=== PATIENT | female | born 1955 | race Caucasian/White ===

== ENCOUNTER 2017-06-13 08:05 | Observation (INO) | payer OTHER ==
[~2017-06-13] VITALS: Ht 154.9 cm; Wt 66.7 kg
[~2017-06-13 08:05] MED LIST: ACEBUTCAFT PO; ARIP15; ASPI325EC PO; ATEN25 PO; Arthritis Pain650 M1 PO; BUPR150T2 PO; BUSP15; CLON.5; CLON1; CLON2 PO; CYCL10 PO; Ceftriaxone2 G1 IV; DEPRESSION MED; DIAZ10 PO; DIPH50 PO; DIVA125EC PO; DOCU100 PO; DULO30 PO; DULO60 PO; EFFEXOR; ENOX40I SC; FIORCET; FISH1000; FLUO90; HYDACE10B PO; HYDACE5 PO; IBUP800 PO; LEXA; LORA2 PO; METOPROLOL PO; Multivitamin1 EAC1 PO; NAPR250 PO; NAPR500 PO; OXYACE5T PO; OXYC5 PO; PHENA100 PO; PROACE100 PO; PROC10 PO; PROM25 PO; Percocet 5-3251 EACH PO; RXTRAM50 PO; SULTRIDS PO; SULTRISS PO; SUMA25 PO; TRAM50 PO; Ultram50 MG PO; Verotin-Gr Cap1 EACH PO; ZYPREXA; [UNRECOGNIZED DRUG - OTHER]; [UNRECOGNIZED DRUG - REMARK]; [UNRECOGNIZED DRUG - REMARK]
[2017-06-13] MEDS ORDERED: METO50ER PO (08:31)
[2017-06-13] MEDS ORDERED: CYCL10 PO (08:32)
[2017-06-13 09:00] LABS: BASOPHILS ABSOLUTE AUTO 0.04 K/mm3 (0.00-0.23); BASOPHILS PERCENT AUTO 1 % (0-2); EOSINOPHILS ABSOLUTE AUTO 0.07 K/mm3 (0.00-0.68); EOSINOPHILS PERCENT AUTO 1 % (0-6); Hematocrit 42.2 % (33.0-51.0); Hemoglobin 14.1 g/dL (11.5-16.0); IMMATURE GRAN ABSOLUTE AUTO 0.01 K/mm3 (0.00-0.10); IMMATURE GRAN PERCENT AUTO 0 % (0-1); LYMPHOCYTES ABSOLUTE AUTO 2.14 K/mm3 (0.84-5.20); LYMPHOCYTES PERCENT AUTO 35 % (21-46); MONOCYTES ABSOLUTE AUTO 0.47 K/mm3 (0.16-1.47); MONOCYTES PERCENT AUTO 8 % (4-13); Mean Corpuscular HGB Conc 33.4 g/dL (31.5-36.5); Mean Corpuscular Volume 87 fL (80-100); Mean Platelet Volume 11.1 fL (9.1-12.4); NEUTROPHILS ABSOLUTE AUTO 3.42 K/mm3 (1.96-9.15); NEUTROPHILS PERCENT AUTO 56 % (41-73); Platelet Count 260 K/mm3 (150-400); RDW Coefficient Variation 12.2 % (11.7-14.2); RDW Standard Deviation 38.8 fL (35.1-46.3); Red Blood Cell Count 4.86 M/mm3 (3.80-5.20); White Blood Cell Count 6.15 K/mm3 (4.00-11.30)
[2017-06-13 09:23] LABS: Alanine Aminotransfer (ALT/SGP 21 U/L (12-78); Albumin, Blood 4.1 g/dL (3.4-5.0); Albumin/Globulin Ratio 1.2 (0.8-1.8); Alk Phos 58 U/L (50-136); Anion Gap 7 mmol/L (6-16); Aspartate Aminotrans (AST/SGOT 18 U/L (12-37); Bilirubin, Total 0.4 mg/dL (0.1-1.0); Blood Urea Nitrogen 9 mg/dL (8-24); Bun/Creatinine Ratio 15.9 (12.0-20.0); CO2, Blood 28 mmol/L (21-32); Calcium, Blood 9.3 mg/dL (8.5-10.1); Chloride, Blood 106 mmol/L (98-108); Creatinine, Blood 0.57 mg/dL (0.40-1.00); Ethanol (Alcohol), Blood, Med <3 mg/dL; Globulin, Blood 3.5 g/dL (2.2-4.0); Glomerular Filtration Rate >60 (60-); Glucose, Blood 118 mg/dL (70-99); Potassium, Blood 3.8 mmol/L (3.5-5.5); Salicylate 3.9 mg/dL (2.8-20.0); Sodium, Blood 141 mmol/L (136-145); Total Protein, Blood 7.6 g/dL (6.4-8.2)
[2017-06-13 09:32] LABS: Acetaminophen, Random <2.0 ug/mL (10.0-30.0)
[2017-06-13 09:43] LABS: Bilirubin, Urine Neg (Neg); Blood, Urine Neg (Neg); Glucose Qualitative, Urine Neg (Neg); Ketones, Urine Neg (Neg); Leukocyte Esterase, Urine Neg (Neg); Nitrite, Urine Neg (Neg); Protein, Urine Neg (Neg); Urobilinogen, Urine NORM (Normal)
[2017-06-13 09:57] LABS: Appearance, Urine Clear (Clear); Color, Urine Pale Yellow (P-Yellow)
[2017-06-13 10:06] LABS: U Amphetamine Screen Not Detected; U Barbituate Screen Not Detected; U Benzodiazapine Screen DETECTED; U Buprenorphine Screen Not Detected; U Cannabinoids Screen DETECTED; U Cocaine Screen Not Detected; U Methadone Screen Not Detected; U Methamphetamine Screen Not Detected; U Opiates Screen Not Detected; U Oxycodone Screen Not Detected; U Phencyclidine Screen Not Detected; U Propoxyphene Screen Not Detected
== END 2017-06-13 15:12 | disposition home or self-care (01) ==
LOC: ER 08:05 → EOR 08:06
PROVIDERS: Emergency Medicine
DX: R45.851 Suicidal ideations (principal); F32.9 Major depressive disorder, single episode, unspecified; R44.0 Auditory hallucinations; G89.29 Other chronic pain; R10.9 Unspecified abdominal pain; M79.7 Fibromyalgia; G35 Multiple sclerosis; Z86.73 Personal history of transient ischemic attack (TIA), and cerebral infarction without residual deficits; Z98.1 Arthrodesis status; Z88.5 Allergy status to narcotic agent; Z90.710 Acquired absence of both cervix and uterus; Z87.891 Personal history of nicotine dependence; Z98.890 Other specified postprocedural states; Z79.899 Other long term (current) drug therapy
CPT/HCPCS: 36415; 80053; 81003; 84443; 85025; 99285; G0378; G0480

== ENCOUNTER 2017-10-09 11:45 | Observation (INO) | payer OTHER ==
[~2017-10-09] VITALS: Ht 157.5 cm; Wt 53.1 kg
[~2017-10-09 11:45] MED LIST changes: +METO50ER PO
[2017-10-09 13:18] LABS: Source, Urine Catheter
[2017-10-09 13:22] LABS: BASOPHILS ABSOLUTE AUTO 0.03 K/mm3 (0.00-0.23); BASOPHILS PERCENT AUTO 0 % (0-2); EOSINOPHILS ABSOLUTE AUTO 0.02 K/mm3 (0.00-0.68); EOSINOPHILS PERCENT AUTO 0 % (0-6); Hematocrit 38.4 % (33.0-51.0); IMMATURE GRAN ABSOLUTE AUTO 0.01 K/mm3 (0.00-0.10); IMMATURE GRAN PERCENT AUTO 0 % (0-1); LYMPHOCYTES ABSOLUTE AUTO 2.12 K/mm3 (0.84-5.20); LYMPHOCYTES PERCENT AUTO 31 % (21-46); MONOCYTES ABSOLUTE AUTO 0.53 K/mm3 (0.16-1.47); MONOCYTES PERCENT AUTO 8 % (4-13); Mean Corpuscular HGB 29.7 pg (26.0-34.0); Mean Corpuscular HGB Conc 33.9 g/dL (31.5-36.5); Mean Corpuscular Volume 88 fL (80-100); Mean Platelet Volume 10.4 fL (9.1-12.4); NEUTROPHILS ABSOLUTE AUTO 4.13 K/mm3 (1.96-9.15); NEUTROPHILS PERCENT AUTO 61 % (41-73); Platelet Count 217 K/mm3 (150-400); RDW Coefficient Variation 12.3 % (11.7-14.2); RDW Standard Deviation 39.5 fL (35.1-46.3); Red Blood Cell Count 4.38 M/mm3 (3.80-5.20); White Blood Cell Count 6.84 K/mm3 (4.00-11.30)
[2017-10-09 13:27] LABS: Appearance, Urine Clear (Clear); Blood, Urine 1+ (Neg); Color, Urine Yellow (P-Yellow); Glucose Qualitative, Urine Neg (Neg); Ketones, Urine 3+ (Neg); Leukocyte Esterase, Urine 1+ (Neg); Nitrite, Urine Neg (Neg); Protein, Urine 2+ (Neg); Specific Gravity, Urine 1.025 (1.003-1.022); Urobilinogen, Urine 2+ (Normal)
[2017-10-09 13:49] LABS: Alanine Aminotransfer (ALT/SGP 20 U/L (12-78); Albumin, Blood 3.9 g/dL (3.4-5.0); Albumin/Globulin Ratio 1.3 (0.8-1.8); Alk Phos 48 U/L (50-136); Anion Gap 6 mmol/L (6-16); Aspartate Aminotrans (AST/SGOT 17 U/L (12-37); Bilirubin, Total 0.7 mg/dL (0.1-1.0); Blood Urea Nitrogen 10 mg/dL (8-24); Bun/Creatinine Ratio 17.7 (12.0-20.0); CO2, Blood 27 mmol/L (21-32); Calcium, Blood 9.2 mg/dL (8.5-10.1); Chloride, Blood 109 mmol/L (98-108); Creatinine, Blood 0.57 mg/dL (0.40-1.00); Ethanol (Alcohol), Blood, Med <3 mg/dL; Glomerular Filtration Rate >60 (60-); Glucose, Blood 98 mg/dL (70-99); Potassium, Blood 3.7 mmol/L (3.5-5.5); Salicylate 4.4 mg/dL (2.8-20.0); Sodium, Blood 142 mmol/L (136-145); Total Protein, Blood 6.9 g/dL (6.4-8.2)
[2017-10-09 13:53] LABS: Thyroid Stimulating Hormone 0.965 uIU/mL (0.360-4.800)
[2017-10-09 14:00] LABS: U Amphetamine Screen Not Detected; U Barbituate Screen Not Detected; U Benzodiazapine Screen DETECTED; U Buprenorphine Screen Not Detected; U Cannabinoids Screen DETECTED; U Cocaine Screen Not Detected; U Methadone Screen Not Detected; U Methamphetamine Screen Not Detected; U Opiates Screen Not Detected; U Oxycodone Screen Not Detected; U Phencyclidine Screen Not Detected; U Propoxyphene Screen Not Detected
[2017-10-09 14:00] LABS: Bilirubin, Urine 1+ (Neg)
[2017-10-09 14:01] LABS: Red Blood Cells, Urine 0-2 /hpf (0-2); Squamous Epithelial Cells Rare /hpf (Few)
[2017-10-09 14:02] LABS: Bacteria Few /hpf; Mucus Heavy (0-Heavy)
[2017-10-09 14:12] LABS: Acetaminophen, Random <2.0 ug/mL (10.0-30.0)
== END 2017-10-10 13:51 | disposition home or self-care (01) ==
LOC: ER 11:45 → EOR 11:46
PROVIDERS: Emergency Medicine
DX: R45.851 Suicidal ideations (principal); R45.850 Homicidal ideations; F32.9 Major depressive disorder, single episode, unspecified; N39.0 Urinary tract infection, site not specified; M79.7 Fibromyalgia; G35 Multiple sclerosis; Z87.891 Personal history of nicotine dependence; Z88.5 Allergy status to narcotic agent; Z79.899 Other long term (current) drug therapy; Z86.73 Personal history of transient ischemic attack (TIA), and cerebral infarction without residual deficits
CPT/HCPCS: 36415; 80053; 81001; 84443; 85025; 87086; 99285; G0378; G0480; Q3014

== ENCOUNTER 2019-04-09 12:32 | Emergency (ER) | payer OTHER ==
[~2019-04-09] VITALS: Ht 154.9 cm; Wt 51.7 kg
[~2019-04-09 12:32] MED LIST changes: +SUMA5NI
[2019-04-09 13:17] LABS: BASOPHILS ABSOLUTE AUTO 0.03 K/mm3 (0.00-0.23); BASOPHILS PERCENT AUTO 1 % (0-2); EOSINOPHILS ABSOLUTE AUTO 0.09 K/mm3 (0.00-0.68); EOSINOPHILS PERCENT AUTO 1 % (0-6); Hematocrit 38.5 % (33.0-51.0); Hemoglobin 12.8 g/dL (11.5-16.0); IMMATURE GRAN ABSOLUTE AUTO 0.01 K/mm3 (0.00-0.10); IMMATURE GRAN PERCENT AUTO 0 % (0-1); LYMPHOCYTES ABSOLUTE AUTO 2.17 K/mm3 (0.84-5.20); LYMPHOCYTES PERCENT AUTO 34 % (21-46); MONOCYTES ABSOLUTE AUTO 0.44 K/mm3 (0.16-1.47); MONOCYTES PERCENT AUTO 7 % (4-13); Mean Corpuscular HGB 30.4 pg (26.0-34.0); Mean Corpuscular HGB Conc 33.2 g/dL (31.5-36.5); Mean Corpuscular Volume 91 fL (80-100); Mean Platelet Volume 10.9 fL (9.1-12.4); NEUTROPHILS ABSOLUTE AUTO 3.56 K/mm3 (1.96-9.15); NEUTROPHILS PERCENT AUTO 57 % (41-73); Platelet Count 230 K/mm3 (150-400); RDW Standard Deviation 40.7 fL (35.1-46.3); Red Blood Cell Count 4.21 M/mm3 (3.80-5.20)
[2019-04-09 13:39] LABS: Alanine Aminotransfer (ALT/SGP 20 U/L (12-78); Albumin, Blood 3.9 g/dL (3.4-5.0); Albumin/Globulin Ratio 1.3 (0.8-1.8); Alk Phos 49 U/L (50-136); Anion Gap 6 mmol/L (6-16); Aspartate Aminotrans (AST/SGOT 18 U/L (12-37); Bilirubin, Total 0.3 mg/dL (0.1-1.0); Blood Urea Nitrogen 13 mg/dL (8-24); Bun/Creatinine Ratio 20.4 (12.0-20.0); CO2, Blood 27 mmol/L (21-32); Calcium, Blood 9.2 mg/dL (8.5-10.1); Chloride, Blood 111 mmol/L (98-108); Creatinine, Blood 0.64 mg/dL (0.40-1.00); Globulin, Blood 3.1 g/dL (2.2-4.0); Glomerular Filtration Rate >60 (60-); Glucose, Blood 111 mg/dL (70-99); Potassium, Blood 3.4 mmol/L (3.5-5.5); Sodium, Blood 144 mmol/L (136-145)
[2019-04-09 15:04] LABS: Source, Urine Clean Catch
[2019-04-09 15:29] LABS: Bilirubin, Urine Neg (Neg); Blood, Urine 2+ (Neg); Glucose Qualitative, Urine Neg (Neg); Ketones, Urine Neg (Neg); Leukocyte Esterase, Urine Neg (Neg); Nitrite, Urine Neg (Neg); Protein, Urine Neg (Neg); Specific Gravity, Urine 1.025 (1.003-1.022); Urobilinogen, Urine NORM (Normal)
[2019-04-09 15:36] LABS: Appearance, Urine Clear (Clear); Color, Urine Yellow (P-Yellow)
[2019-04-09 15:39] LABS: Bacteria Rare /hpf; Red Blood Cells, Urine 0-2 /hpf (0-2); Squamous Epithelial Cells Rare /hpf (Few); White Blood Cells, Urine 0-2 /hpf (0-5)
[2019-04-09 15:49] LABS: U Amphetamine Screen Not Detected; U Barbituate Screen Not Detected; U Benzodiazapine Screen DETECTED; U Buprenorphine Screen Not Detected; U Cannabinoids Screen DETECTED; U Cocaine Screen Not Detected; U Methadone Screen Not Detected; U Methamphetamine Screen Not Detected; U Opiates Screen Not Detected; U Oxycodone Screen Not Detected; U Phencyclidine Screen Not Detected; U Propoxyphene Screen Not Detected
== END 2019-04-09 16:23 | disposition home or self-care (01) ==
LOC: ER 12:32
PROVIDERS: Emergency Medicine; Internal Medicine
DX: G43.909 Migraine, unspecified, not intractable, without status migrainosus (principal); F32.9 Major depressive disorder, single episode, unspecified; Z91.048 Other nonmedicinal substance allergy status; Z88.5 Allergy status to narcotic agent; Z79.899 Other long term (current) drug therapy; Z86.73 Personal history of transient ischemic attack (TIA), and cerebral infarction without residual deficits; Z87.891 Personal history of nicotine dependence
CPT/HCPCS: 36415; 80053; 81001; 85025; 93005; 93010; 96374; 96375; 99284-25; J1630; J1885

== ENCOUNTER → 2021-04-09 | Outpatient (CLI) | payer OTHER | END | disposition home or self-care (01) | LOC: LAB SHORT 14:54 → LAB 14:54 | DX: N39.0 Urinary tract infection, site not specified (principal) | CPT/HCPCS: 87086 ==

== ENCOUNTER → 2021-05-08 | Outpatient (CLI) | payer OTHER | LOC: LAB 10:17 → LAB SHORT 10:17 → EDSTATUS 05-08 13:05 → LAB FUT 05-08 13:05 | DX: R31.9 Hematuria, unspecified (principal) | CPT/HCPCS: 87086 ==

== ENCOUNTER 2022-04-04 09:45 | Inpatient (IN) | payer OTHER ==
[~2022-04-04] VITALS: Ht 154.9 cm; Wt 59.0 kg
[2022-04-04 11:15] LABS: BASOPHILS ABSOLUTE AUTO 0.04 K/mm3 (0.00-0.23); BASOPHILS PERCENT AUTO 0 % (0-2); EOSINOPHILS ABSOLUTE AUTO 0.03 K/mm3 (0.00-0.68); EOSINOPHILS PERCENT AUTO 0 % (0-6); Hematocrit 44.2 % (33.0-51.0); Hemoglobin 15.2 g/dL (11.5-16.0); IMMATURE GRAN ABSOLUTE AUTO 0.05 K/mm3 (0.00-0.10); IMMATURE GRAN PERCENT AUTO 0 % (0-1); LYMPHOCYTES ABSOLUTE AUTO 1.88 K/mm3 (0.84-5.20); LYMPHOCYTES PERCENT AUTO 14 % (21-46); MONOCYTES ABSOLUTE AUTO 1.03 K/mm3 (0.16-1.47); MONOCYTES PERCENT AUTO 8 % (4-13); Mean Corpuscular HGB 30.6 pg (26.0-34.0); Mean Corpuscular HGB Conc 34.4 g/dL (31.5-36.5); Mean Corpuscular Volume 89 fL (80-100); Mean Platelet Volume 10.4 fL (9.1-12.4); NEUTROPHILS ABSOLUTE AUTO 10.62 K/mm3 (1.96-9.15); NEUTROPHILS PERCENT AUTO 78 % (41-73); Platelet Count 275 K/mm3 (150-400); RDW Coefficient Variation 12.1 % (11.7-14.2); RDW Standard Deviation 39.6 fL (35.1-46.3); Red Blood Cell Count 4.96 M/mm3 (3.80-5.20); White Blood Cell Count 13.65 K/mm3 (4.00-11.30)
[2022-04-04 11:42] LABS: Albumin, Blood 3.9 g/dL (3.4-5.0); Albumin/Globulin Ratio 1.1 (0.8-1.8); Bilirubin, Total 0.5 mg/dL (0.1-1.0); Bun/Creatinine Ratio 24.5 (12.0-20.0); Calcium, Blood 9.5 mg/dL (8.5-10.1); Creatinine, Blood 0.49 mg/dL (0.40-1.00); Globulin, Blood 3.4 g/dL (2.2-4.0); Potassium, Blood 3.7 mmol/L (3.5-5.5); Total Protein, Blood 7.3 g/dL (6.4-8.2)
[2022-04-04 13:35] LABS: Source, Urine Clean Catch
[2022-04-04 13:39] LABS: Appearance, Urine Hazy (Clear); Bilirubin, Urine Neg (Neg); Blood, Urine 4+ (Neg); Color, Urine Yellow (P-Yellow); Glucose Qualitative, Urine Neg (Neg); Ketones, Urine 3+ (Neg); Leukocyte Esterase, Urine 1+ (Neg); Nitrite, Urine Neg (Neg); Protein, Urine 1+ (Neg); Urobilinogen, Urine NORM (Normal)
[2022-04-04 13:50] LABS: Bacteria Mod /hpf; Mucus Mod (0-Heavy); Renal Epithelial Few /hpf (0-Rare); Squamous Epithelial Cells Mod /hpf (Few)
[2022-04-04 16:52] LABS: Hematocrit 39.6 % (33.0-51.0); Hemoglobin 13.3 g/dL (11.5-16.0)
[2022-04-04] MEDS ORDERED: DIAZ10 PO (19:32)
[2022-04-04] MEDS ORDERED: METO50ER PO (19:33)
[2022-04-04] MEDS ORDERED: SUMA5NI (19:36)
[2022-04-05 00:50] LABS: Hematocrit 38.5 % (33.0-51.0); Hemoglobin 13.3 g/dL (11.5-16.0)
--- NOTE | 2022-04-05 04:13 | NUR ---
SHIFT SUMMARY: Pt arrived on unit from ED around 1999. Pt is A/Ox4 and call light appropriate. Pt had some c/o pain overnight in her abdomen, PRN Fetnyl given PRN. She denied nausea, dizziness, SOB. She is on RA. Currently has an NPO diet. IV abx given per JUL.
[2022-04-05 08:47] LABS: BASOPHILS ABSOLUTE AUTO 0.03 K/mm3 (0.00-0.23); BASOPHILS PERCENT AUTO 0 % (0-2); EOSINOPHILS ABSOLUTE AUTO 0.05 K/mm3 (0.00-0.68); EOSINOPHILS PERCENT AUTO 1 % (0-6); Hematocrit 39.7 % (33.0-51.0); Hemoglobin 13.2 g/dL (11.5-16.0); IMMATURE GRAN ABSOLUTE AUTO 0.02 K/mm3 (0.00-0.10); IMMATURE GRAN PERCENT AUTO 0 % (0-1); LYMPHOCYTES ABSOLUTE AUTO 1.71 K/mm3 (0.84-5.20); LYMPHOCYTES PERCENT AUTO 22 % (21-46); MONOCYTES ABSOLUTE AUTO 0.59 K/mm3 (0.16-1.47); MONOCYTES PERCENT AUTO 8 % (4-13); Mean Corpuscular HGB 30.1 pg (26.0-34.0); Mean Corpuscular HGB Conc 33.2 g/dL (31.5-36.5); Mean Corpuscular Volume 90 fL (80-100); Mean Platelet Volume 10.3 fL (9.1-12.4); NEUTROPHILS ABSOLUTE AUTO 5.22 K/mm3 (1.96-9.15); NEUTROPHILS PERCENT AUTO 69 % (41-73); Platelet Count 233 K/mm3 (150-400); RDW Coefficient Variation 12.3 % (11.7-14.2); RDW Standard Deviation 40.8 fL (35.1-46.3); Red Blood Cell Count 4.39 M/mm3 (3.80-5.20); White Blood Cell Count 7.62 K/mm3 (4.00-11.30)
[2022-04-05 09:22] LABS: Albumin, Blood 3.1 g/dL (3.4-5.0); Bilirubin, Total 0.9 mg/dL (0.1-1.0); Bun/Creatinine Ratio 18.7 (12.0-20.0); Calcium, Blood 8.6 mg/dL (8.5-10.1); Creatinine, Blood 0.59 mg/dL (0.40-1.00); Globulin, Blood 3.2 g/dL (2.2-4.0); Potassium, Blood 3.6 mmol/L (3.5-5.5); Total Protein, Blood 6.3 g/dL (6.4-8.2)
[2022-04-05 16:54] LABS: Hematocrit 40.2 % (33.0-51.0); Hemoglobin 13.3 g/dL (11.5-16.0)
--- NOTE | 2022-04-05 17:52 | NUR ---
SHIFT SUMMARY PT ADMITTED FOR COLITIS. PT EXPERIENCING ABD PAIN/NAUSEA AND TREATED PER EMR. SOME LOOSE, DARK STOOLS THIS AM. PT ON CLEAR LIQUID DIET AND TOLERATING IT WELL AT THIS TIME. PT RECEIVING IV ABX AT THIS TIME. VSS.
--- NOTE | 2022-04-06 06:07 | NUR ---
A/OX4; CALM AND COOPERATIVE. IND IN ROOM. C/O LOW BACK PAIN RATED AT 2-5/10; PRN ANALGESIC GIVEN PER EMAR. C/O FEELING NAUSEATED; PRN ANTIEMETIC PER ORDERS; HELPFUL PER PATIENT. ABX PER ORDERS. SLEEP PROMOTED. CALL LIGHT IN REACH; ENCOURAGED TO MAKE NEEDS KNOWN.
--- NOTE | 2022-04-06 08:01 | NUR ---
pt laying in bed talking on the phone, a/ox4, pleasant and cooperative with care, follow commands well, denies pain but reports tenderness in abd, lungs are clear t/o, on r/a, no cough noted, resp even and unlabore, hrr, no edema noted, ppp+2, cap refill <3sec, vs stable, afebrile, iv site to right hand site is clear and patent, btx4, hyperactive, abd flat soft tender, having small amounts of soft brown stool, voids without diff, skin c/w/d, maew, alexandra, call light in reach.
--- NOTE | 2022-04-06 18:14 | NUR ---
pt has refused clear liquid meals, spoke to obtained order to advance diet, she refused full liquid, states she wont try it. ordered regular for tonyane, she didn't like what the secretary book keeper said, is very upset, calling her names, asked her not to call names, and tell me what happened, but is not receptive to resolving it and refusing to eat her meal, offered everything else that could be available, but says no, no further changes this shift, call light in reach.
--- NOTE | 2022-04-07 05:36 | NUR ---
SHIFT SUMMARY A/O X4- IND IN THE ROOM. VITAL SIGNS STABLE. NO N/V REPORTED THROUGHOUT SHIFT, VOIDING BUT NO REPORT OF BOWEL MOVEMENT. PAIN MANAGED W/ ONE NORCO PO PER EMAR. PLEASANT AND COOPERATIVE W/ CARE, USES CALL LIGHT APPROPRIATELY. WILL CONTINUE TO MONITOR AND REPORT TO ONCOMING RN.
[2022-04-07 06:08] LABS: BASOPHILS ABSOLUTE AUTO 0.05 K/mm3 (0.00-0.23); BASOPHILS PERCENT AUTO 1 % (0-2); EOSINOPHILS ABSOLUTE AUTO 0.07 K/mm3 (0.00-0.68); EOSINOPHILS PERCENT AUTO 1 % (0-6); Hematocrit 41.3 % (33.0-51.0); Hemoglobin 13.8 g/dL (11.5-16.0); IMMATURE GRAN ABSOLUTE AUTO 0.01 K/mm3 (0.00-0.10); IMMATURE GRAN PERCENT AUTO 0 % (0-1); LYMPHOCYTES ABSOLUTE AUTO 1.57 K/mm3 (0.84-5.20); LYMPHOCYTES PERCENT AUTO 26 % (21-46); MONOCYTES ABSOLUTE AUTO 0.55 K/mm3 (0.16-1.47); MONOCYTES PERCENT AUTO 9 % (4-13); Mean Corpuscular HGB 29.6 pg (26.0-34.0); Mean Corpuscular HGB Conc 33.4 g/dL (31.5-36.5); Mean Corpuscular Volume 89 fL (80-100); Mean Platelet Volume 10.3 fL (9.1-12.4); NEUTROPHILS ABSOLUTE AUTO 3.76 K/mm3 (1.96-9.15); NEUTROPHILS PERCENT AUTO 63 % (41-73); Platelet Count 257 K/mm3 (150-400); RDW Coefficient Variation 11.9 % (11.7-14.2); Red Blood Cell Count 4.66 M/mm3 (3.80-5.20); White Blood Cell Count 6.01 K/mm3 (4.00-11.30)
--- NOTE | 2022-04-07 08:00 | NUR ---
pt in good spirits this am, states she had a good night, a/ox3, pleasant and cooperative with care, follows commands well, reports pain in her abd and pelvic area, pain meds will be given, lungs are clear t/o, resp even and unlabored, no cough noted, hrr, no edema noted ppp +2, cap refill <3sec, vs stable, afebrile, iv site is a bit positional, bt x4 hyperactive, voids without diff, skin c/w/d, maew, up indep in room, gait noted to be steady, alexandra, call light in reach.
[2022-04-07 12:00] LABS: Adenovirus F 40/41 Not Detected (NOT DETECT); Astrovirus Not Detected (NOT DETECT); Campylobacter Sp Not Detected (NOT DETECT); Cryptosporidium Not Detected (NOT DETECT); Cyclospora Cayetanensis Not Detected (NOT DETECT); E. Coli O157 Not Detected (NOT DETECT); Entamoeba Histolytica Not Detected (NOT DETECT); Enteroaggregative E. coli-EAEC Not Detected (NOT DETECT); Enteropathogenic E. coli-EPEC Not Detected (NOT DETECT); Enterotoxigenic E. coli-ETEC Not Detected (NOT DETECT); Giardia Lamblia Not Detected (NOT DETECT); Norovirus GI/GII Not Detected (NOT DETECT); Plesiomonas Shigelloides Not Detected (NOT DETECT); Rotavirus A Not Detected (NOT DETECT); Salmonella Sp Not Detected (NOT DETECT); Sapovirus Not Detected (NOT DETECT); Shiga Toxin-prod E. coli-STEC Not Detected (NOT DETECT); Shigella/Enteroin E. coli-EIEC Not Detected (NOT DETECT); Vibrio Cholerae Not Detected (NOT DETECT); Vibrio Sp Not Detected (NOT DETECT); Yersinia Enterocolitica Not Detected (NOT DETECT)
--- NOTE | 2022-04-07 18:04 | NUR ---
pt is complaining of increased pain in pelvic area, she points to the right inguinal area, states it's worse than yesterday, still not eating much, b/p is higher this evening in the 170's, medicated with pain meds, call to Dr. Jensen, call light in reach.
--- NOTE | 2022-04-08 04:43 | NUR ---
SHIFT SUMMARY A/O X4- IND IN THE ROOM. VITAL SIGNS STABLE. PT REPORTED ABDOMINAL/BACK PAIN AT 5/10 THIS SHIFT, TREATED W/ PO PAIN MEDICATIONS. LITTLE INTAKE THROUGHOUT SHIFT. VOIDING WELL, NO STOOL REPORTED. BOWEL TONES HYPOACTIVE. PLEASANT AND COOPERATIVE W/ CARE. WILL CONTINUE TO MONITOR AND REPORT TO ONCOMING RN.
[2022-04-08 05:36] LABS: BASOPHILS ABSOLUTE AUTO 0.05 K/mm3 (0.00-0.23); BASOPHILS PERCENT AUTO 1 % (0-2); EOSINOPHILS PERCENT AUTO 2 % (0-6); Hemoglobin 14.4 g/dL (11.5-16.0); IMMATURE GRAN ABSOLUTE AUTO 0.01 K/mm3 (0.00-0.10); IMMATURE GRAN PERCENT AUTO 0 % (0-1); LYMPHOCYTES PERCENT AUTO 28 % (21-46); MONOCYTES ABSOLUTE AUTO 0.63 K/mm3 (0.16-1.47); MONOCYTES PERCENT AUTO 11 % (4-13); Mean Corpuscular HGB 30.7 pg (26.0-34.0); Mean Corpuscular HGB Conc 34.3 g/dL (31.5-36.5); Mean Corpuscular Volume 90 fL (80-100); Mean Platelet Volume 10.5 fL (9.1-12.4); NEUTROPHILS ABSOLUTE AUTO 3.52 K/mm3 (1.96-9.15); NEUTROPHILS PERCENT AUTO 59 % (41-73); Platelet Count 261 K/mm3 (150-400); RDW Coefficient Variation 11.9 % (11.7-14.2); RDW Standard Deviation 38.7 fL (35.1-46.3); Red Blood Cell Count 4.69 M/mm3 (3.80-5.20); White Blood Cell Count 6.01 K/mm3 (4.00-11.30)
[2022-04-08 06:06] LABS: Bun/Creatinine Ratio 20.5 (12.0-20.0); Calcium, Blood 9.2 mg/dL (8.5-10.1); Creatinine, Blood 0.64 mg/dL (0.40-1.00)
--- NOTE | 2022-04-08 18:47 | NUR ---
SHIFT SUMMARY- PT IS A/O, PLESANT AND COOPERATIVE. SHE IS EATING AND DRINKING WELL. SHE IS RECIEVING SCHEDULED TYLONEL AND PRN PAIN CONTROL. SHE REPORTS IMPROVED COMFORT. SHE TOOK A SHOWER THIS SHIFT. SHE WENT FOR AN MRI THIS AFTERNOON. SHE IS INDEPENDENT IN THE ROOM. HER BED IS IN THE LOW POSTION AND CALL LIGHT IS WITHIN REACH.
--- NOTE | 2022-04-09 04:40 | NUR ---
SHIFT SUMMARY 67 YR F ADMITTED ON 04/04/22 FOR GI BLEED. FULL CODE. NO ACUTE CHANGES THIS SHIFT. PT C/O ABDOMINAL PAIN IN RLQ AND WAS MEDICATED PER EMAR. SHE IS INDEPENDANT IN THE ROOM AND COOPERATIVE WITH CARE. SHE SLEPT FOR MOST OF THIS SHIFT AND APPEARED TO BE COMFORTABLE. NO C/O NAUSEA OR BLOOD IN STOOL.
[2022-04-09] MEDS ORDERED: Celexa20 MG PO (13:01)
[2022-04-09] MEDS ORDERED: ACET500 PO (13:01)
[2022-04-09] MEDS ORDERED: LOSA25 PO (13:02)
[2022-04-09] MEDS ORDERED: GABA100 PO (13:02)
[2022-04-09] MEDS ORDERED: ONDA4ODT MM (13:03)
[2022-04-09] MEDS ORDERED: Percocet 10-321 EACH PO (13:04)
[2022-04-09] MEDS ORDERED: AZIT250 PO (13:04)
--- NOTE | 2022-04-09 14:30 | NUR ---
DISCHARGE SUMMARY PATIENT ALERT AND ORIENTED AND INDEPENDENT IN THE ROOM. TOLERATING REGULAR DIET. VOIDING WELL. NO BLOOD PER RECTUM. REPORTS CONSTANT PELVIC/R HIP PAIN. MEDICATAED PER EMAR. DISCHARGE ORDERS GIVEN BY DR ESPINO. DISCHARGE EDUCATION GIVEN ON NEW MEDS AND FOLLOW UP APPTS. IV DC'D WNL. PATIENT LEFT UNIT AT 1330 VIA WHEELCHAIR FOR HOME WITH FAMILY MEMBER.
== END 2022-04-09 13:33 | disposition home or self-care (01) | DRG 378 ==
LOC: ER 09:45 → ERHOLD 09:46 → MEDS 09:46 → ERHOLD 09:46 → MEDS 20:01
PROVIDERS: Physician Assistant; ADMIT Internal Medicine
DX: K92.2 Gastrointestinal hemorrhage, unspecified (principal); A09 Infectious gastroenteritis and colitis, unspecified; F41.8 Other specified anxiety disorders; M54.16 Radiculopathy, lumbar region; M48.061 Spinal stenosis, lumbar region without neurogenic claudication; M79.7 Fibromyalgia; G35 Multiple sclerosis; F32.A Depression, unspecified; G89.29 Other chronic pain; N83.209 Unspecified ovarian cyst, unspecified side; Z98.890 Other specified postprocedural states; Z87.891 Personal history of nicotine dependence; Z85.43 Personal history of malignant neoplasm of ovary; Z90.721 Acquired absence of ovaries, unilateral; Z86.73 Personal history of transient ischemic attack (TIA), and cerebral infarction without residual deficits; Z90.710 Acquired absence of both cervix and uterus; Z88.5 Allergy status to narcotic agent; Z88.8 Allergy status to other drugs, medicaments and biological substances
CPT/HCPCS: 36415; 72148; 72195; 74177; 80048; 80053; 81001; 83631; 85014; 85018; 85025; 87015; 87045; 87046; 87086; 87205; 87507; 87899; 96365-59; 96366; 96367; 96375; 99284-25; A9270; G0378; J0295; J2270; J2405; J2543; J3010; Q9967

== ENCOUNTER 2022-05-23 09:10 | Emergency (ER) | payer OTHER ==
[~2022-05-23] VITALS: Ht 154.9 cm; Wt 61.2 kg
[~2022-05-23 09:10] MED LIST changes: +ACET500 PO; +AZIT250 PO; +Celexa20 MG PO; +GABA100 PO; +LOSA25 PO; +ONDA4ODT MM; +Percocet 10-321 EACH PO
[2022-05-23 11:34] LABS: BASOPHILS ABSOLUTE AUTO 0.06 K/mm3 (0.00-0.23); BASOPHILS PERCENT AUTO 1 % (0-2); EOSINOPHILS ABSOLUTE AUTO 0.08 K/mm3 (0.00-0.68); EOSINOPHILS PERCENT AUTO 1 % (0-6); Hematocrit 40.7 % (33.0-51.0); Hemoglobin 13.7 g/dL (11.5-16.0); IMMATURE GRAN ABSOLUTE AUTO 0.03 K/mm3 (0.00-0.10); IMMATURE GRAN PERCENT AUTO 0 % (0-1); LYMPHOCYTES PERCENT AUTO 15 % (21-46); MONOCYTES PERCENT AUTO 9 % (4-13); Mean Corpuscular HGB 29.7 pg (26.0-34.0); Mean Corpuscular HGB Conc 33.7 g/dL (31.5-36.5); Mean Corpuscular Volume 88 fL (80-100); Mean Platelet Volume 10.4 fL (9.1-12.4); NEUTROPHILS ABSOLUTE AUTO 8.84 K/mm3 (1.96-9.15); NEUTROPHILS PERCENT AUTO 75 % (41-73); Platelet Count 425 K/mm3 (150-400); RDW Coefficient Variation 11.5 % (11.7-14.2); RDW Standard Deviation 36.7 fL (35.1-46.3); Red Blood Cell Count 4.61 M/mm3 (3.80-5.20); White Blood Cell Count 11.81 K/mm3 (4.00-11.30)
[2022-05-23 11:37] LABS: Source, Urine Clean Catch
[2022-05-23 11:40] LABS: Appearance, Urine Hazy (Clear); Bilirubin, Urine Neg (Neg); Blood, Urine 3+ (Neg); Color, Urine Yellow (P-Yellow); Glucose Qualitative, Urine Neg (Neg); Ketones, Urine Neg (Neg); Leukocyte Esterase, Urine 1+ (Neg); Nitrite, Urine Neg (Neg); Protein, Urine 1+ (Neg); Specific Gravity, Urine 1.025 (1.003-1.022); Urobilinogen, Urine NORM (Normal)
[2022-05-23 11:42] LABS: Albumin, Blood 3.4 g/dL (3.4-5.0); Albumin/Globulin Ratio 0.8 (0.8-1.8); Bilirubin, Total 0.3 mg/dL (0.1-1.0); Bun/Creatinine Ratio 20.9 (12.0-20.0); Calcium, Blood 9.4 mg/dL (8.5-10.1); Creatinine, Blood 0.57 mg/dL (0.40-1.00); Globulin, Blood 4.3 g/dL (2.2-4.0); Potassium, Blood 3.2 mmol/L (3.5-5.5); Total Protein, Blood 7.7 g/dL (6.4-8.2)
[2022-05-23 11:53] LABS: Bacteria Rare /hpf; Mucus Light (0-Heavy); Squamous Epithelial Cells Few /hpf (Few); White Blood Cells, Urine 0-2 /hpf (0-5)
[2022-05-23] MEDS ORDERED: PROBIOTIC1 EA13 PO (12:46)
[2022-05-23] MEDS ORDERED: AMOCLA875 PO (12:46)
== END 2022-05-23 14:23 | disposition home or self-care (01) ==
LOC: ER 09:10
PROVIDERS: Emergency Medicine
DX: K52.9 Noninfective gastroenteritis and colitis, unspecified (principal); Z91.048 Other nonmedicinal substance allergy status; Z88.5 Allergy status to narcotic agent; Z79.899 Other long term (current) drug therapy; M79.7 Fibromyalgia
CPT/HCPCS: 36415; 74177; 80053; 81001; 85025; 87086; J1885; J7030; Q9967

== ENCOUNTER 2022-07-17 13:11 | Day surgery (SDC) | payer OTHER ==
[~2022-07-17] VITALS: Ht 154.9 cm; Wt 58.9 kg
[~2022-07-17 13:11] MED LIST changes: +AMOCLA875 PO; +PROBIOTIC1 EA13 PO
[2022-07-17] MEDS ORDERED: ONDA4 (13:40)
[2022-07-17] MEDS ORDERED: OXYC10ER (13:40)
== END 2022-07-17 15:47 | disposition home or self-care (01) ==
LOC: ORSCSDS 13:11
PROVIDERS: Internal Medicine Gastroenterology
PROC: 0DBM8ZX Excision of Descending Colon, Via Natural or Artificial Opening Endoscopic, Diagnostic (ICD-10-PCS; principal; 2022-07-17 14:45)
DX: K62.5 Hemorrhage of anus and rectum (principal); D12.4 Benign neoplasm of descending colon; K64.4 Residual hemorrhoidal skin tags; R10.84 Generalized abdominal pain; I10 Essential (primary) hypertension; M79.7 Fibromyalgia; G35 Multiple sclerosis; Z80.0 Family history of malignant neoplasm of digestive organs; Z87.891 Personal history of nicotine dependence; Z79.899 Other long term (current) drug therapy
CPT/HCPCS: 88305; J2250; J2704; J7120

== ENCOUNTER 2022-08-07 21:34 | Emergency (ER) | payer OTHER ==
[~2022-08-07] VITALS: Ht 154.9 cm; Wt 61.2 kg
[~2022-08-07 21:34] MED LIST changes: +ONDA4; +OXYC10ER
[2022-08-07 21:56] LABS: BASOPHILS ABSOLUTE AUTO 0.05 K/mm3 (0.00-0.23); BASOPHILS PERCENT AUTO 1 % (0-2); EOSINOPHILS ABSOLUTE AUTO 0.15 K/mm3 (0.00-0.68); EOSINOPHILS PERCENT AUTO 2 % (0-6); Hematocrit 39.9 % (33.0-51.0); Hemoglobin 13.1 g/dL (11.5-16.0); IMMATURE GRAN ABSOLUTE AUTO 0.02 K/mm3 (0.00-0.10); IMMATURE GRAN PERCENT AUTO 0 % (0-1); LYMPHOCYTES ABSOLUTE AUTO 3.14 K/mm3 (0.84-5.20); LYMPHOCYTES PERCENT AUTO 35 % (21-46); MONOCYTES ABSOLUTE AUTO 0.86 K/mm3 (0.16-1.47); MONOCYTES PERCENT AUTO 10 % (4-13); Mean Corpuscular HGB 28.4 pg (26.0-34.0); Mean Corpuscular HGB Conc 32.8 g/dL (31.5-36.5); Mean Corpuscular Volume 87 fL (80-100); Mean Platelet Volume 10.1 fL (9.1-12.4); NEUTROPHILS ABSOLUTE AUTO 4.71 K/mm3 (1.96-9.15); NEUTROPHILS PERCENT AUTO 53 % (41-73); Platelet Count 288 K/mm3 (150-400); RDW Coefficient Variation 12.9 % (11.7-14.2); RDW Standard Deviation 40.5 fL (35.1-46.3); Red Blood Cell Count 4.61 M/mm3 (3.80-5.20); White Blood Cell Count 8.93 K/mm3 (4.00-11.30)
[2022-08-07 22:22] LABS: Alanine Aminotransfer (ALT/SGP 20 U/L (12-78); Albumin, Blood 3.6 g/dL (3.4-5.0); Alk Phos 59 U/L (50-136); Anion Gap 6 mmol/L (6-16); Aspartate Aminotrans (AST/SGOT 14 U/L (12-37); Bilirubin, Total 0.2 mg/dL (0.1-1.0); Blood Urea Nitrogen 14 mg/dL (8-24); Bun/Creatinine Ratio 21.1 (12.0-20.0); CO2, Blood 27 mmol/L (21-32); Calcium, Blood 9.4 mg/dL (8.5-10.1); Chloride, Blood 106 mmol/L (98-108); Creatinine, Blood 0.66 mg/dL (0.40-1.00); Ethanol (Alcohol), Blood, Med <3 mg/dL; Globulin, Blood 3.6 g/dL (2.2-4.0); Glomerular Filtration Rate 97 (60-); Glucose, Blood 136 mg/dL (70-99); Potassium, Blood 3.5 mmol/L (3.5-5.5); Sodium, Blood 139 mmol/L (136-145); Total Protein, Blood 7.2 g/dL (6.4-8.2)
== END 2022-08-08 00:39 | disposition home or self-care (01) ==
LOC: ER 21:34
PROVIDERS: Emergency Medicine
DX: R07.89 Other chest pain (principal); Z91.048 Other nonmedicinal substance allergy status; Z88.0 Allergy status to penicillin; Z88.5 Allergy status to narcotic agent; Z79.899 Other long term (current) drug therapy
CPT/HCPCS: 71045; 80053; 83880; 84484; 85025; 93005; 93010; 96374; 99284-25; G0480; J1885

== ENCOUNTER → 2023-03-28 | Outpatient (CLI) | payer OTHER ==
[2023-03-29 10:45] LABS: Candida species (DNA Probe) Positive (NEGATIVE); G. vaginalis (DNA Probe) Negative (NEGATIVE); T. vaginalis (DNA Probe) Negative (NEGATIVE)
== END | disposition home or self-care (01) ==
LOC: LAB SHORT 14:27 → LAB 14:27
PROVIDERS: Family Medicine
DX: R10.2 Pelvic and perineal pain (principal)
CPT/HCPCS: 87480; 87510; 87660

== ENCOUNTER 2024-03-22 10:17 | Emergency (ER) | payer OTHER ==
[~2024-03-22] VITALS: Ht 152.4 cm; Wt 68.0 kg
[2024-03-22 10:31] VITALS: BP 174/76
[2024-03-23 17:01] LABS: HEPATITIS B SURFACE ANTIBODY <3.10 IU/L
[2024-03-24 13:51] LABS: HIV 1,2 COMBO ANTIGEN/ANTIBODY Negative (Negative)
[2024-03-24 23:02] LABS: HCV QNT BY NAAT (IU/ML) Not Detected; HCV QNT BY NAAT (LOG IU/ML) Not Detected; HCV QNT BY NAAT INTERP Not Detected (Not Detected)
== END 2024-03-22 10:46 | disposition home or self-care (01) ==
LOC: ER 10:17
PROVIDERS: Physician Assistant
DX: Z11.59 Encounter for screening for other viral diseases (principal); Z11.4 Encounter for screening for human immunodeficiency virus [HIV]; Z20.828 Contact with and (suspected) exposure to other viral communicable diseases; Z86.73 Personal history of transient ischemic attack (TIA), and cerebral infarction without residual deficits; Z87.891 Personal history of nicotine dependence; Z59.89 Other problems related to housing and economic circumstances; Z91.048 Other nonmedicinal substance allergy status; Z88.5 Allergy status to narcotic agent; Z88.0 Allergy status to penicillin; Z79.891 Long term (current) use of opiate analgesic; Z79.899 Other long term (current) drug therapy; W46.1XXA Contact with contaminated hypodermic needle, initial encounter; Y93.E9 Activity, other interior property and clothing maintenance
CPT/HCPCS: 36415; 84460; 87389; 87522; 99282

== ENCOUNTER → 2024-05-11 | Outpatient (CLI) | payer OTHER ==
[2024-05-11 20:43] LABS: Candida Group, PCR NOT DETECTED (NOT DETECT)
[2024-05-11 20:45] LABS: Bacterial Vaginosis PCR Positive (NEGATIVE); Candida glabrata-krusei, PCR DETECTED (NOT DETECT)
== END | disposition home or self-care (01) ==
LOC: LAB SHORT 16:46 → LAB 16:46
PROVIDERS: Nurse Practitioner
DX: N89.8 Other specified noninflammatory disorders of vagina (principal); R30.0 Dysuria
CPT/HCPCS: 87086; 87481; 87661; 87801

== ENCOUNTER 2024-09-13 05:48 | Day surgery (SDC) | payer OTHER ==
[~2024-09-13] VITALS: Ht 152.4 cm; Wt 66.0 kg
[2024-09-13] VITALS (10 sets, daily range): BP systolic 118–161; BP diastolic 51–106
[~2024-09-13 05:48] MED LIST changes: +ASPI81CH; +ATOR40TA PO
[2024-09-13] MEDS ORDERED: Heparin Sodium 1000 Units/ML 10ML MDV ONE (07:14)
[2024-09-13] MEDS ORDERED: NS 1,000 ML IV ONE ×2 (07:14→09:07)
[2024-09-13] MEDS ORDERED: Verapamil HCL 2.5 MG/ML 2ML Injection ONE (07:14)
[2024-09-13] MEDS ORDERED: NS 250 ML IV ONE (07:14)
[2024-09-13] MEDS ORDERED: FentaNYL Citrate 50 MCG/ML 2 ML Injection ONE (09:06)
[2024-09-13] MEDS ORDERED: Midazolam HCl 1MG / ML 2ML Vial ONE (09:06)
[2024-09-13] MEDS ORDERED: Tirofiban HCL Monohydrate 3.75 MG/15 ML Vial ONE (09:39)
--- NOTE | 2024-09-13 10:12 | NUR ---
PATIENT ARRIVED TO RECOVERY ROOM SITTING UPRIGHT IN RECLINER. RIGHT RADIAL TR BAND IN PLACE, SITE C/D/I SOFT/NONTENDER, NO EVIDENCE OF BLEEDING. VSS ON RA. PATIENT CONVERSING APPROPRIATELY. PATIENT DENYING ANY PAIN.
--- NOTE | 2024-09-13 10:45 | NUR ---
PATIENT AMBUALTING AND VOIDING TO RESTROOM WITHOUT DIFFICULTY. RIGHT RADIAL TR BAND SITE C/D/I SOFT/NONTENDER, NO EVIDENCE OF BLEEDING. VSS ON RA. PATIENT DENYING ANY PAIN. PATIENT TOELRATING PO INTAKE WELL.
--- NOTE | 2024-09-13 11:00 | NUR ---
INITIAL 2 CC OF AIR REMOVED FROM RIGHT RADIAL TR BAND. SITE C/D/I SFOT/NONTENDER, NO EVIDENCE OF BLEEDING. VSS ON RA. PATIENT DENYING ANY PAIN
--- NOTE | 2024-09-13 11:30 | NUR ---
ALL AIR REMOVED FROM RIGHT RADIAL TR BAND. SITE C/D/I SOFT/NONTENDER, NO EVIDENCE OF BLEEDING. VSS ON RA. DISCHARGE INSTRUCTIONS REVIEWED WITH PATIENT. ALL QUESTIONS WERE ANSWERED.
--- NOTE | 2024-09-13 12:23 | NUR ---
PATIENT DISCHARGED HOME AT THIS TIME. DISHCARGE INSTRUCTIONS REVIEWED WITH PATIENT, ALL QUESTIONS WERE ANSWERED. PIV REMOVED WITHOUT DIFFICULTY, CATHETER INTACT. VSS. TR BAND REMOVED, WHITE ARM BOARD IN PLACE. PATIENT WHEELED TO HOSPITAL ENTRANCE AND FRIEND ABLE TO PROVIDE TRANSPORTATION HOME.
== END 2024-09-13 13:35 | disposition home or self-care (01) ==
LOC: MHTC 05:48
DX: R07.89 Other chest pain (principal); I10 Essential (primary) hypertension; D32.9 Benign neoplasm of meninges, unspecified; Z86.73 Personal history of transient ischemic attack (TIA), and cerebral infarction without residual deficits; Z79.899 Other long term (current) drug therapy; Z88.0 Allergy status to penicillin; Z88.5 Allergy status to narcotic agent; Z91.048 Other nonmedicinal substance allergy status
CPT/HCPCS: 76937; 93454; 99152; 99153; C1769; C1887; C1894; J1644; J2250; J3010; J3246; J7030; J7050; Q9967